=== PATIENT | female | born 1970 | race Two or more races ===

== ENCOUNTER 2023-07-23 11:42 | Outpatient (RCR) | payer BC, SELFPAY ==
[2023-07-23] MEDS: NSS 250 IV (12:24)
[2023-07-23] MEDS: TYSABRI 115 MG IV (12:25)
[2023-07-23 12:37] VITALS: BP 110/70
== END 2023-07-26 08:50 | disposition home or self-care (01) ==
LOC: OID 11:42
PROVIDERS: ATTENDING PHYSICIAN Psychiatry & Neurology Neurology; FAMILY PHYSICIAN Specialist
DX: G35 Multiple sclerosis (principal)
CPT/HCPCS: 96361; 96365; J2323

== ENCOUNTER 2023-08-25 11:31 | Outpatient (RCR) | payer BC, SELFPAY ==
[2023-08-25 11:46] VITALS: BP 131/83
[2023-08-25] MEDS: TYSABRI 115 MG IV (11:58)
[2023-08-25] MEDS: NSS 250 IV (11:58)
[2023-08-25 14:00] VITALS: BP 130/82
== END 2023-08-25 15:10 | disposition home or self-care (01) ==
LOC: OID 11:31
PROVIDERS: ATTENDING PHYSICIAN Psychiatry & Neurology Neurology; FAMILY PHYSICIAN Specialist
DX: G35 Multiple sclerosis (principal)
CPT/HCPCS: 96361; 96365; J2323

== ENCOUNTER 2023-09-23 10:42 | Outpatient (RCR) | payer BC, SELFPAY ==
[2023-09-23 10:10] VITALS: BP 117/76
[2023-09-23] MEDS: NSS 250 IV (11:18)
[2023-09-23] MEDS: TYSABRI 115 MG IV (11:19)
[2023-09-23 12:37] VITALS: BP 121/78
[2023-09-23 13:38] VITALS: BP 150/70
== END 2023-09-24 08:43 | disposition home or self-care (01) ==
LOC: OID 10:42
PROVIDERS: ATTENDING PHYSICIAN Psychiatry & Neurology Neurology; FAMILY PHYSICIAN Specialist
DX: G35 Multiple sclerosis (principal)
CPT/HCPCS: 96361; 96365; J2323

== ENCOUNTER 2023-10-20 10:35 | Outpatient (RCR) | payer BC, SELFPAY ==
[2023-10-20 11:18] VITALS: BP 113/72
[2023-10-20 11:22] LABS: % Basophils 0.8 % (0-2); % Eosinophils 3.5 % (0-6); % Immature Granulocytes 0.2 % (0-0.5); % Monocytes 8.4 % (1.7-9.3); % Neutrophils 47.1 % (42.2-75.2); Absolute Basophils 0.1 10^3/uL (0-0.2); Absolute Eosinophils 0.3 10^3/uL (0-0.7); Absolute Lymphocytes 3.9 10^3/uL (1.2-3.4); Absolute Monocytes 0.8 10^3/uL (0.1-0.6); Absolute Neutrophils 4.6 10^3/uL (1.4-6.5); Hematocrit 37.7 % (37.0-47.0); Hemoglobin 12.6 g/dL (12.0-16.0); Mean Corp Hgb Conc. 33.4 g/dL (33.0-37.0); Mean Corpuscular Hgb 28.8 pg (27.0-31.0); Mean Corpuscular Volume 86.3 fL (81.0-99.0); Mean Platelet Volume 9.4 fL (7.4-10.4); Platelet Count 276 10^3/uL (130-400); Red Blood Cell Count 4.37 10^6/uL (4.20-5.40); Red Cell Dist. Width 14.4 % (11.5-14.5); White Blood Cell Count 9.8 10^3/uL (4.8-10.8)
[2023-10-20] MEDS: NSS 250 IV (11:22)
[2023-10-20] MEDS: TYSABRI 115 MG IV (11:22)
[2023-10-20 11:48] LABS: ALT (SGPT) 74 U/L (0-35); AST (SGOT) 52 U/L (14-36); Albumin 4.2 g/dl (3.5-5.0); Alkaline Phosphatase 88 U/L (38-126); Blood Urea Nitrogen 11 mg/dl (7-17); Calcium 9.3 mg/dl (8.4-10.2); Carbon Dioxide 28 mmol/L (22-30); Chloride 102 mmol/L (98-107); Glucose 85 mg/dl (70-99); Sodium 137 mmol/L (135-145); Total Bilirubin 0.3 mg/dl (0.2-1.3); Total Protein 6.7 g/dl (6.3-8.2); eGFR > 60.00
[2023-10-20] MEDS: TYLENOL 650 MG PO (12:47)
[2023-10-20] MEDS: BENADRYL 25 MG PO (12:47)
[2023-10-20] MEDS: VENOFER 110 MG IV (12:55)
[2023-10-20 15:29] VITALS: BP 124/72
== END 2023-10-21 10:10 | disposition home or self-care (01) ==
LOC: OID 10:35
PROVIDERS: ATTENDING PHYSICIAN Psychiatry & Neurology Neurology; FAMILY PHYSICIAN Specialist
DX: G35 Multiple sclerosis (principal)
CPT/HCPCS: 36415; 80053; 85025; 96365; 96367; J1756; J2323

== ENCOUNTER 2023-11-17 10:42 | Outpatient (RCR) | payer BC, SELFPAY ==
[2023-11-04 11:11] VITALS: BP 130/82
[2023-11-04] MEDS: BENADRYL 25 MG PO (11:15)
[2023-11-04] MEDS: VENOFER 110 MG IV (11:15)
[2023-11-04] MEDS: TYLENOL 650 MG PO (11:15)
[2023-11-04 12:37] VITALS: BP 116/66
[2023-11-09] MEDS: TYLENOL 650 MG PO (11:17)
[2023-11-09] MEDS: VENOFER 110 MG IV (11:17)
[2023-11-09 11:30] VITALS: BP 119/79
[2023-11-11 11:00] VITALS: BP 122/71
[2023-11-11] MEDS: TYLENOL 650 MG PO (11:12)
[2023-11-11] MEDS: BENADRYL 25 MG PO (11:12)
[2023-11-11] MEDS: VENOFER 110 MG IV (11:13)
[2023-11-11 12:46] VITALS: BP 116/73
[2023-11-17 10:50] VITALS: BP 130/84
[2023-11-17] MEDS: NSS 250 IV (11:05)
[2023-11-17] MEDS: TYSABRI 115 MG IV (11:07)
[2023-11-17] MEDS: TYLENOL 650 MG PO (12:46)
[2023-11-17] MEDS: BENADRYL 25 MG PO (12:46)
[2023-11-17] MEDS: VENOFER 110 MG IV (12:47)
[2023-11-17 12:48] VITALS: BP 117/70
[2023-11-17 14:04] VITALS: BP 120/70
== END 2023-11-18 11:11 | disposition home or self-care (01) ==
LOC: OID 10:42
PROVIDERS: ATTENDING PHYSICIAN Psychiatry & Neurology Neurology; FAMILY PHYSICIAN Specialist
DX: G35 Multiple sclerosis (principal); D50.9 Iron deficiency anemia, unspecified
CPT/HCPCS: 96361; 96365; 96368; J1756; J2323

== ENCOUNTER 2023-12-15 10:46 | Outpatient (RCR) | payer BC, SELFPAY ==
[2023-12-15 11:04] VITALS: BP 110/77
[2023-12-15] MEDS: NSS 250 IV (11:14)
[2023-12-15] MEDS: TYSABRI 115 MG IV (11:14)
== END 2023-12-16 09:08 | disposition home or self-care (01) ==
LOC: OID 10:46
PROVIDERS: ATTENDING PHYSICIAN Psychiatry & Neurology Neurology; FAMILY PHYSICIAN Specialist
DX: G35 Multiple sclerosis (principal); D50.9 Iron deficiency anemia, unspecified
CPT/HCPCS: 96361; 96365; J2323

== ENCOUNTER 2024-01-12 11:02 | Outpatient (RCR) | payer BC, SELFPAY ==
[2024-01-12 11:00] VITALS: BP 118/83
[2024-01-12] MEDS: TYSABRI 115 MG IV (11:22)
[2024-01-12] MEDS: NSS 250 IV (11:22)
[2024-01-12 12:25] VITALS: BP 115/78
== END 2024-01-12 13:56 | disposition home or self-care (01) ==
LOC: OID 11:02
PROVIDERS: ATTENDING PHYSICIAN Psychiatry & Neurology Neurology; FAMILY PHYSICIAN Specialist
DX: G35 Multiple sclerosis (principal); D50.9 Iron deficiency anemia, unspecified
CPT/HCPCS: 96365; J2323

== ENCOUNTER 2024-02-09 10:36 | Outpatient (RCR) | payer BC, SELFPAY ==
[2024-02-09] MEDS: NSS 250 IV (10:59)
[2024-02-09] MEDS: TYSABRI 115 MG IV (11:00)
[2024-02-09 11:04] VITALS: BP 115/71
== END 2024-02-10 11:20 | disposition home or self-care (01) ==
LOC: OID 10:36
PROVIDERS: ATTENDING PHYSICIAN Psychiatry & Neurology Neurology; FAMILY PHYSICIAN Specialist
DX: G35 Multiple sclerosis (principal); D50.9 Iron deficiency anemia, unspecified
CPT/HCPCS: 96361; 96365; J2323

== ENCOUNTER 2024-03-08 10:46 | Outpatient (RCR) | payer BC, SELFPAY ==
[2024-03-08 11:07] VITALS: BP 137/83
[2024-03-08] MEDS: TYSABRI 115 MG IV (11:18)
[2024-03-08] MEDS: NSS 250 IV (11:18)
[2024-03-08 13:10] VITALS: BP 129/76
== END 2024-03-09 10:05 | disposition home or self-care (01) ==
LOC: OID 10:46
PROVIDERS: ATTENDING PHYSICIAN Psychiatry & Neurology Neurology; FAMILY PHYSICIAN Specialist
DX: G35 Multiple sclerosis (principal); D50.9 Iron deficiency anemia, unspecified
CPT/HCPCS: 96361; 96365; J2323

== ENCOUNTER 2024-04-06 10:39 | Outpatient (RCR) | payer BC, SELFPAY ==
[2024-04-06 11:00] VITALS: BP 123/66
[2024-04-06 11:22] LABS: % Basophils 0.5 % (0-2); % Immature Granulocytes 0.2 % (0-0.5); % Lymphocytes 42.3 % (20.5-51.1); % Monocytes 7.7 % (1.7-9.3); % Neutrophils 46.3 % (42.2-75.2); Absolute Basophils 0.1 10^3/uL (0-0.2); Absolute Eosinophils 0.3 10^3/uL (0-0.7); Absolute Lymphocytes 4.4 10^3/uL (1.2-3.4); Absolute Monocytes 0.8 10^3/uL (0.1-0.6); Absolute Neutrophils 4.8 10^3/uL (1.4-6.5); Hematocrit 36.6 % (37.0-47.0); Hemoglobin 12.4 g/dL (12.0-16.0); Mean Corp Hgb Conc. 33.9 g/dL (33.0-37.0); Mean Corpuscular Hgb 29.6 pg (27.0-31.0); Mean Corpuscular Volume 87.4 fL (81.0-99.0); Mean Platelet Volume 9.2 fL (7.4-10.4); Platelet Count 265 10^3/uL (130-400); Red Blood Cell Count 4.19 10^6/uL (4.20-5.40); White Blood Cell Count 10.4 10^3/uL (4.8-10.8)
[2024-04-06] MEDS: NSS 250 IV (11:32)
[2024-04-06] MEDS: TYSABRI 115 MG IV (11:33)
[2024-04-06 12:10] VITALS: BP 123/66
[2024-04-06 12:40] VITALS: BP 112/69
[2024-04-06 12:56] LABS: ALT (SGPT) 24 U/L (0-35); AST (SGOT) 23 U/L (14-36); Albumin 3.2 g/dl (3.5-5.0); Alkaline Phosphatase 51 U/L (38-126); Blood Urea Nitrogen 14 mg/dl (7-17); Calcium 7.9 mg/dl (8.4-10.2); Carbon Dioxide 21 mmol/L (22-30); Chloride 109 mmol/L (98-107); Glucose 76 mg/dl (70-99); Potassium 3.5 mmol/L (3.5-5.1); Sodium 139 mmol/L (135-145); Total Bilirubin 0.1 mg/dl (0.2-1.3); Total Protein 5.2 g/dl (6.3-8.2); eGFR > 60.00
[2024-04-06 13:10] VITALS: BP 108/69
[2024-04-06 13:40] VITALS: BP 119/83
[2024-04-06 13:50] VITALS: BP 125/80
== END 2024-04-07 10:30 | disposition home or self-care (01) ==
LOC: OID 10:39
PROVIDERS: ATTENDING PHYSICIAN Psychiatry & Neurology Neurology; FAMILY PHYSICIAN Specialist
DX: G35 Multiple sclerosis (principal); D50.9 Iron deficiency anemia, unspecified
CPT/HCPCS: 36415; 80053; 85025; 96361; 96365; J2323

== ENCOUNTER 2024-05-15 13:32 | Outpatient (RCR) | payer BC, SELFPAY ==
[2024-05-15 13:45] VITALS: BP 136/80
[2024-05-15] MEDS: NSS 250 IV (13:56)
[2024-05-15] MEDS: TYSABRI 115 MG IV (13:57)
[2024-05-15 15:09] VITALS: BP 128/89
== END 2024-05-16 09:50 | disposition home or self-care (01) ==
LOC: OID 13:32
PROVIDERS: ATTENDING PHYSICIAN Psychiatry & Neurology Neurology; FAMILY PHYSICIAN Specialist
DX: G35 Multiple sclerosis (principal); D50.9 Iron deficiency anemia, unspecified
CPT/HCPCS: 96361; 96365; J2323

== ENCOUNTER 2024-06-15 11:01 | Outpatient (RCR) | payer BC, SELFPAY ==
[2024-06-15] MEDS: NSS 250 IV (11:31)
[2024-06-15] MEDS: TYSABRI 115 MG IV (11:32)
[2024-06-15 12:14] LABS: % Basophils 0.9 % (0-2); % Immature Granulocytes 0.5 % (0-0.5); % Lymphocytes 44.7 % (20.5-51.1); % Monocytes 7.8 % (1.7-9.3); % Neutrophils 43.1 % (42.2-75.2); Absolute Basophils 0.1 10^3/uL (0-0.2); Absolute Eosinophils 0.3 10^3/uL (0-0.7); Absolute Immature Granulocytes 0.1 10^3/uL (0-0.05); Absolute Lymphocytes 4.3 10^3/uL (1.2-3.4); Absolute Monocytes 0.8 10^3/uL (0.1-0.6); Absolute Neutrophils 4.1 10^3/uL (1.4-6.5); Hematocrit 37.7 % (37.0-47.0); Hemoglobin 12.7 g/dL (12.0-16.0); Mean Corp Hgb Conc. 33.7 g/dL (33.0-37.0); Mean Corpuscular Volume 86.1 fL (81.0-99.0); Mean Platelet Volume 9.5 fL (7.4-10.4); Nucleated Red Blood Cells % 0 %; Platelet Count 247 10^3/uL (130-400); Red Blood Cell Count 4.38 10^6/uL (4.20-5.40); Red Cell Dist. Width 14.4 % (11.5-14.5); White Blood Cell Count 9.6 10^3/uL (4.8-10.8)
[2024-06-15 12:15] VITALS: BP 134/72
[2024-06-15 12:19] LABS: ALT (SGPT) 30 U/L (0-35); AST (SGOT) 34 U/L (14-36); Albumin 4.5 g/dl (3.5-5.0); Alkaline Phosphatase 73 U/L (38-126); Blood Urea Nitrogen 12 mg/dl (7-17); Calcium 9.6 mg/dl (8.4-10.2); Carbon Dioxide 28 mmol/L (22-30); Chloride 101 mmol/L (98-107); Glucose 86 mg/dl (70-99); Potassium 4.5 mmol/L (3.5-5.1); Sodium 136 mmol/L (135-145); Total Bilirubin 0.3 mg/dl (0.2-1.3); Total Protein 6.7 g/dl (6.3-8.2); eGFR > 60.00
== END 2024-06-16 09:17 | disposition home or self-care (01) ==
LOC: OID 11:01
PROVIDERS: ATTENDING PHYSICIAN Psychiatry & Neurology Neurology; FAMILY PHYSICIAN Specialist
DX: G35 Multiple sclerosis (principal); D50.9 Iron deficiency anemia, unspecified
CPT/HCPCS: 80053; 85025; 96365; J2323

== ENCOUNTER 2024-07-13 10:50 | Outpatient (RCR) | payer BC, SELFPAY ==
[2024-07-13 11:00] VITALS: BP 117/63; BMI 38.1
[2024-07-13] MEDS: TYSABRI 115 MG IV (11:25)
[2024-07-13] MEDS: NSS 250 IV (11:25)
[2024-07-13 11:30] VITALS: BP 114/69
[2024-07-13 12:00] VITALS: BP 118/72
[2024-07-13 12:30] VITALS: BP 115/79
[2024-07-13 13:00] VITALS: BP 129/78
[2024-07-13 13:30] VITALS: BP 117/79
== END 2024-07-14 09:14 | disposition home or self-care (01) ==
LOC: OID 10:50
PROVIDERS: ATTENDING PHYSICIAN Psychiatry & Neurology Neurology; FAMILY PHYSICIAN Specialist
DX: G35 Multiple sclerosis (principal); D50.9 Iron deficiency anemia, unspecified
CPT/HCPCS: 96361; 96365; J2323

== ENCOUNTER 2024-08-10 10:51 | Outpatient (RCR) | payer BC, SELFPAY ==
[2024-08-10 11:10] VITALS: BP 115/73
[2024-08-10 11:28] LABS: % Basophils 0.4 % (0-2); % Eosinophils 3.2 % (0-6); % Immature Granulocytes 0.2 % (0-0.5); % Monocytes 8.8 % (1.7-9.3); % Neutrophils 45.4 % (42.2-75.2); Absolute Eosinophils 0.3 10^3/uL (0-0.7); Absolute Lymphocytes 3.8 10^3/uL (1.2-3.4); Absolute Monocytes 0.8 10^3/uL (0.1-0.6); Absolute Neutrophils 4.1 10^3/uL (1.4-6.5); Hematocrit 36.9 % (37.0-47.0); Hemoglobin 12.3 g/dL (12.0-16.0); Mean Corp Hgb Conc. 33.3 g/dL (33.0-37.0); Mean Corpuscular Hgb 29.2 pg (27.0-31.0); Mean Corpuscular Volume 87.6 fL (81.0-99.0); Platelet Count 210 10^3/uL (130-400); Red Blood Cell Count 4.21 10^6/uL (4.20-5.40); Red Cell Dist. Width 14.3 % (11.5-14.5)
[2024-08-10] MEDS: NSS 250 IV (11:29)
[2024-08-10] MEDS: TYSABRI 115 MG IV (11:30)
[2024-08-10 12:23] LABS: Blood Urea Nitrogen 12 mg/dl (7-17); Glucose 86 mg/dl (70-99)
[2024-08-10 12:24] LABS: ALT (SGPT) 31 U/L (0-35); AST (SGOT) 33 U/L (14-36); Albumin 4.1 g/dl (3.5-5.0); Alkaline Phosphatase 60 U/L (38-126); Calcium 9.3 mg/dl (8.4-10.2); Carbon Dioxide 23 mmol/L (22-30); Chloride 104 mmol/L (98-107); Potassium 4.6 mmol/L (3.5-5.1); Sodium 136 mmol/L (135-145); Total Bilirubin 0.6 mg/dl (0.2-1.3); Total Protein 6.2 g/dl (6.3-8.2); eGFR > 60.00
[2024-08-10 13:25] VITALS: BP 101/63
== END 2024-08-11 08:41 | disposition home or self-care (01) ==
LOC: OID 10:51
PROVIDERS: ATTENDING PHYSICIAN Psychiatry & Neurology Neurology; FAMILY PHYSICIAN Specialist
DX: G35 Multiple sclerosis (principal); D50.9 Iron deficiency anemia, unspecified
CPT/HCPCS: 36415; 80053; 85025; 96361; 96365; J2323

== ENCOUNTER 2024-09-07 10:42 | Outpatient (RCR) | payer BC, SELFPAY ==
[2024-09-07 10:50] VITALS: BP 88/52
[2024-09-07 11:00] VITALS: BP 129/65
[2024-09-07] MEDS: TYSABRI 115 MG IV (11:07)
[2024-09-07 12:55] VITALS: BP 108/62
[2024-09-07 13:10] VITALS: BP 111/67
== END 2024-09-08 11:08 | disposition home or self-care (01) ==
LOC: OID 10:42
PROVIDERS: ATTENDING PHYSICIAN Psychiatry & Neurology Neurology; FAMILY PHYSICIAN Specialist
DX: G35 Multiple sclerosis (principal); D50.9 Iron deficiency anemia, unspecified
CPT/HCPCS: 96365; J2323

== ENCOUNTER 2024-10-05 10:56 | Outpatient (RCR) | payer BC, SELFPAY ==
[2024-10-05] MEDS: TYSABRI 115 MG IV (11:27)
[2024-10-05] MEDS: NSS 250 IV (11:27)
[2024-10-05 11:33] VITALS: BP 114/73
[2024-10-05 11:40] LABS: % Eosinophils 5.6 % (0-6); % Immature Granulocytes 0.1 % (0-0.5); % Lymphocytes 47.1 % (20.5-51.1); % Monocytes 8.9 % (1.7-9.3); % Neutrophils 37.3 % (42.2-75.2); Absolute Basophils 0.1 10^3/uL (0-0.2); Absolute Eosinophils 0.5 10^3/uL (0-0.7); Absolute Monocytes 0.8 10^3/uL (0.1-0.6); Absolute Neutrophils 3.1 10^3/uL (1.4-6.5); Hematocrit 33.4 % (37.0-47.0); Hemoglobin 11.4 g/dL (12.0-16.0); Mean Corp Hgb Conc. 34.1 g/dL (33.0-37.0); Mean Corpuscular Hgb 29.7 pg (27.0-31.0); Mean Platelet Volume 9.5 fL (7.4-10.4); Platelet Count 244 10^3/uL (130-400); Red Blood Cell Count 3.84 10^6/uL (4.20-5.40); White Blood Cell Count 8.4 10^3/uL (4.8-10.8)
[2024-10-05 12:25] LABS: ALT (SGPT) 35 U/L (0-35); AST (SGOT) 30 U/L (14-36); Albumin 3.5 g/dl (3.5-5.0); Alkaline Phosphatase 49 U/L (38-126); Blood Urea Nitrogen 13 mg/dl (7-17); Calcium 9.2 mg/dl (8.4-10.2); Carbon Dioxide 27 mmol/L (22-30); Chloride 107 mmol/L (98-107); Glucose 79 mg/dl (70-99); Potassium 4.4 mmol/L (3.5-5.1); Sodium 139 mmol/L (135-145); Total Bilirubin 0.3 mg/dl (0.2-1.3); Total Protein 5.6 g/dl (6.3-8.2); eGFR > 60.00
== END 2024-10-06 08:57 | disposition home or self-care (01) ==
LOC: OID 10:56
PROVIDERS: ATTENDING PHYSICIAN Psychiatry & Neurology Neurology; FAMILY PHYSICIAN Specialist
DX: G35 Multiple sclerosis (principal); D50.9 Iron deficiency anemia, unspecified
CPT/HCPCS: 36415; 80053; 85025; 96361; 96365; J2323

== ENCOUNTER 2024-11-02 10:19 | Outpatient (RCR) | payer BC, SELFPAY ==
[2024-11-02 10:30] VITALS: BP 115/73
[2024-11-02] MEDS: NSS 250 IV (10:55)
[2024-11-02] MEDS: TYSABRI 115 MG IV (10:56)
[2024-11-02 11:30] VITALS: BP 120/62
[2024-11-02 12:00] VITALS: BP 118/68
[2024-11-02 12:30] VITALS: BP 120/71
[2024-11-02 13:00] VITALS: BP 117/59
== END 2024-11-03 08:58 | disposition home or self-care (01) ==
LOC: OID 10:19
PROVIDERS: ATTENDING PHYSICIAN Psychiatry & Neurology Neurology; FAMILY PHYSICIAN Specialist
DX: G35 Multiple sclerosis (principal); D50.9 Iron deficiency anemia, unspecified
CPT/HCPCS: 96361; 96365; J2323

== ENCOUNTER 2024-12-28 10:05 | Outpatient (RCR) | payer BC, SELFPAY ==
[2024-11-30] MEDS: TYSABRI 115 MG IV (12:09)
[2024-11-30] MEDS: NSS 250 IV (12:09)
[2024-11-30 12:13] VITALS: BP 134/84
[2024-11-30 12:52] LABS: Hematocrit 35.9 % (37.0-47.0); Hemoglobin 12.2 g/dL (12.0-16.0); Mean Corp Hgb Conc. 34.0 g/dL (33.0-37.0); Mean Corpuscular Volume 86.3 fL (81.0-99.0); Nucleated Red Blood Cells % 0.2 %; Platelet Count 245 10^3/uL (130-400); Red Cell Dist. Width 14.1 % (11.5-14.5)
[2024-11-30 13:07] LABS: ALT (SGPT) 32 U/L (0-35); AST (SGOT) 29 U/L (14-36); Albumin 4.1 g/dl (3.5-5.0); Alkaline Phosphatase 59 U/L (38-126); Blood Urea Nitrogen 11 mg/dl (7-17); Calcium 9.9 mg/dl (8.4-10.2); Carbon Dioxide 28 mmol/L (22-30); Chloride 107 mmol/L (98-107); Glucose 80 mg/dl (70-99); Potassium 4.4 mmol/L (3.5-5.1); Sodium 137 mmol/L (135-145); Total Protein 6.4 g/dl (6.3-8.2); eGFR > 60.00
[2024-12-28 10:15] VITALS: BP 127/73
[2024-12-28] MEDS: NSS 250 IV (10:40)
[2024-12-28] MEDS: TYSABRI 115 MG IV (10:40)
[2024-12-28 11:00] VITALS: BP 116/71
[2024-12-28 11:30] VITALS: BP 115/72
[2024-12-28 12:00] VITALS: BP 120/73
[2024-12-28 12:30] VITALS: BP 114/71
[2024-12-28 12:40] VITALS: BP 109/76
== END 2024-12-28 23:59 | disposition home or self-care (01) ==
LOC: OID 10:05
PROVIDERS: ATTENDING PHYSICIAN Psychiatry & Neurology Neurology; FAMILY PHYSICIAN Specialist
DX: G35 Multiple sclerosis (principal); D50.9 Iron deficiency anemia, unspecified
CPT/HCPCS: 80053; 85025; 96361; 96365; J2323

== ENCOUNTER 2025-01-25 09:53 | Outpatient (RCR) | payer BC, SELFPAY ==
[2025-01-25 10:38] LABS: Hematocrit 35.8 % (37.0-47.0); Hemoglobin 12.1 g/dL (12.0-16.0); Mean Corp Hgb Conc. 33.8 g/dL (33.0-37.0); Mean Corpuscular Volume 86.1 fL (81.0-99.0); Platelet Count 273 10^3/uL (130-400); Red Cell Dist. Width 13.8 % (11.5-14.5)
[2025-01-25] MEDS: NSS 250 IV (10:38)
[2025-01-25] MEDS: TYSABRI 115 MG IV (10:39)
[2025-01-25 10:47] VITALS: BP 107/66
[2025-01-25 11:41] LABS: ALT (SGPT) 43 U/L (0-35); AST (SGOT) 38 U/L (14-36); Albumin 4.3 g/dl (3.5-5.0); Alkaline Phosphatase 58 U/L (38-126); Blood Urea Nitrogen 12 mg/dl (7-17); Calcium 9.7 mg/dl (8.4-10.2); Carbon Dioxide 28 mmol/L (22-30); Chloride 107 mmol/L (98-107); Glucose 78 mg/dl (70-99); Potassium 4.3 mmol/L (3.5-5.1); Sodium 139 mmol/L (135-145); Total Protein 6.5 g/dl (6.3-8.2); eGFR > 60.00
== END 2025-01-26 11:31 | disposition home or self-care (01) ==
LOC: OID 09:53
PROVIDERS: ATTENDING PHYSICIAN Psychiatry & Neurology Neurology; FAMILY PHYSICIAN Specialist
DX: G35 Multiple sclerosis (principal); D50.9 Iron deficiency anemia, unspecified
CPT/HCPCS: 36415; 80053; 85025; 96361; 96365; J2323

== ENCOUNTER 2025-02-22 11:33 | Outpatient (RCR) | payer BC, SELFPAY ==
[2025-02-22 11:54] VITALS: BP 125/72
[2025-02-22] MEDS: NSS 250 IV (12:07)
[2025-02-22] MEDS: TYSABRI 115 MG IV (12:09)
[2025-02-22 12:30] VITALS: BP 112/77
[2025-02-22 13:00] VITALS: BP 109/68
[2025-02-22 13:30] VITALS: BP 108/70
[2025-02-22 14:00] VITALS: BP 112/73
== END 2025-02-23 09:27 | disposition home or self-care (01) ==
LOC: OID 11:33
PROVIDERS: ATTENDING PHYSICIAN Psychiatry & Neurology Neurology; FAMILY PHYSICIAN Specialist
DX: G35 Multiple sclerosis (principal); D50.9 Iron deficiency anemia, unspecified
CPT/HCPCS: 96361; 96365; J2323

== ENCOUNTER 2025-03-22 09:53 | Outpatient (RCR) | payer BC, SELFPAY ==
[2025-03-22 10:15] VITALS: BP 121/67
[2025-03-22] MEDS: NSS 250 IV (10:35)
[2025-03-22] MEDS: TYSABRI 115 MG IV (10:35)
[2025-03-22 11:00] VITALS: BP 139/71
[2025-03-22 11:30] VITALS: BP 123/62
[2025-03-22 12:00] VITALS: BP 121/63
== END 2025-03-23 09:34 | disposition home or self-care (01) ==
LOC: OID 09:53
PROVIDERS: ATTENDING PHYSICIAN Psychiatry & Neurology Neurology; FAMILY PHYSICIAN Specialist
DX: G35.D Multiple sclerosis, unspecified (principal); D50.9 Iron deficiency anemia, unspecified
CPT/HCPCS: 96361; 96365; J2323

== ENCOUNTER 2025-04-19 10:05 | Outpatient (RCR) | payer BC, SELFPAY ==
[2025-04-19 10:16] VITALS: BP 134/79
[2025-04-19] MEDS: NSS 250 IV (10:33)
[2025-04-19] MEDS: TYSABRI 115 MG IV (10:33)
== END 2025-04-20 10:05 | disposition home or self-care (01) ==
LOC: OID 10:05
PROVIDERS: ATTENDING PHYSICIAN Psychiatry & Neurology Neurology; FAMILY PHYSICIAN Specialist
DX: D50.9 Iron deficiency anemia, unspecified (principal)
CPT/HCPCS: 96361; 96365; J2323

== ENCOUNTER 2025-05-17 10:46 | Outpatient (RCR) | payer BC, SELFPAY ==
[2025-05-17 11:10] VITALS: BP 106/66
[2025-05-17] MEDS: TYSABRI 115 MG IV (11:11)
[2025-05-17] MEDS: NSS 250 IV (11:11)
== END 2025-05-18 09:07 | disposition home or self-care (01) ==
LOC: OID 10:46
PROVIDERS: ATTENDING PHYSICIAN Psychiatry & Neurology Neurology; FAMILY PHYSICIAN Specialist
DX: G35.B0 Primary progressive multiple sclerosis, unspecified (principal); D50.9 Iron deficiency anemia, unspecified
CPT/HCPCS: 96365; J2323